=== PATIENT | male | born 1990 | race African-American/Black ===

== ENCOUNTER → 2024-02-22 10:40 | Outpatient (REF) | payer MEDICARE, OTHER, SELFPAY | LOC: HWCARD 10:40 | PROVIDERS: ATTENDING PHYSICIAN Registered Nurse; FAMILY PHYSICIAN Family Medicine | DX: R94.31 Abnormal electrocardiogram [ECG] [EKG] (principal); Z79.899 Other long term (current) drug therapy | CPT/HCPCS: 93005 ==

== ENCOUNTER → 2024-07-24 09:04 | Outpatient (REF) | payer MEDICARE, OTHER, SELFPAY | LOC: HWRCS 09:04 | PROVIDERS: ATTENDING PHYSICIAN Internal Medicine Cardiovascular Disease; FAMILY PHYSICIAN Family Medicine | DX: R00.2 Palpitations (principal) | CPT/HCPCS: 93306 ==

== ENCOUNTER → 2025-08-08 14:05 | Outpatient (REF) | payer MEDICARE, OTHER, SELFPAY | LOC: DHSLP 14:05 | PROVIDERS: ATTENDING PHYSICIAN Internal Medicine; FAMILY PHYSICIAN Family Medicine | DX: G47.33 Obstructive sleep apnea (adult) (pediatric) (principal); R06.83 Snoring | CPT/HCPCS: 95810 ==